=== PATIENT | female | born 1950 | race Caucasian/White ===

== ENCOUNTER 2017-04-17 19:20 | Emergency (ER) | payer SELFPAY ==
[~2017-04-17] VITALS: Ht 160 cm; Wt 65.0 kg
[2017-04-17 19:22] VITALS: BP 143/65; PULSE 96; RESP 16; TEMP 99.2; O2SAT 97
[2017-04-17] MEDS ORDERED: VENTAER INH (20:50)
[2017-04-17] MEDS ORDERED: GUAI600T11 PO (20:50)
[2017-04-17] MEDS ORDERED: LEVO125T4 PO (20:50)
[2017-04-17] MEDS ORDERED: POTA10CA PO (20:50)
[2017-04-17] MEDS ORDERED: FURO40TA PO (20:50)
[2017-04-17] MEDS ORDERED: PRED20 PO (22:13)
[2017-04-17] MEDS ORDERED: ZANT300T PO (22:13)
[2017-04-17] MEDS ORDERED: ZYRTEC PO (22:13)
--- NOTE | 2017-04-17 22:14 | PD ---
HPI Chief Complaint: Skin Problem Time Seen by Provider: 21:59 Travel History International Travel<30 days: No Contact w/Intl Traveler<30days: No Traveled to known affect area: No History of Present Illness HPI 66 years old female complains itching rash. Patient states that she started having itching rash on the feet 3 days ago. Patient states that she is not having itching of the trunk and upper extremity subsequently. Patient took Benadryl for the past several days. Last dose of Benadryl was this morning. Patient states that she was having trouble swallowing last night. Patient denies any headache. Patient denies any chest pain or shortness of breath. Patient states that she has some chest discomfort this evening. Patient denies any fever chills from the patient denies any coughing congestion. Patient is not sure of exposure. PFSH Past Medical History Asthma: Yes Cancer: Yes (breast) COPD: Yes Immunizations Current: Yes Tetanus Vaccination: < 5 Years Influenza Vaccination: Yes Social History Alcohol Use: No Tobacco Use: Yes Substance Use: No Allergies-Medications (Allergen,Severity, Reaction): Coded Allergies: ciprofloxacin (Verified Allergy, Severe, Anaphylaxis, 04/17/17) hydromorphone (Verified Allergy, Severe, Anaphylaxis, 04/17/17) Reported Meds & Prescriptions Reported Meds & Active Scripts Active Reported Potassium Chloride ER (Potassium Chloride) 10 Meq Cap 10 Meq PO DAILY Levothyroxine (Levothyroxine Sodium) 125 Mcg Tab 125 Mcg PO DAILY Mucus Relief ER (Guaifenesin) 600 Mg Tab 200 Mg PO BID PRN Ventolin Hfa 18 GM Inh (Albuterol Sulfate) 90 Mcg/Act Aer 2 Puff INH Q4H PRN Furosemide 40 Mg Tab 40 Mg PO DAILY Review of Systems General / Constitutional: No: Fever Eyes: No: Visual changes HENT: No: Headaches Cardiovascular: No: Chest Pain or Discomfort Respiratory: No: Shortness of Breath Gastrointestinal: No: Abdominal Pain Genitourinary: No: Dysuria Musculoskeletal: No: Pain Skin: Positive Rash, Positive Itching Neurologic: No: Weakness Psychiatric: No: Depression Endocrine: No: Polydipsia Hematologic/Lymphatic: No: Easy Bruising Physical Exam Narrative GENERAL: Well-nourished, well-developed patient. SKIN: Focused skin assessment warm/dry. Patient has hives over the face, trunk , extremity. HEAD: Normocephalic. EYES: No scleral icterus. No injection or drainage. Throat: No edema. NECK: Supple, trachea midline. No JVD or lymphadenopathy. CARDIOVASCULAR: Regular rate and rhythm without murmurs, gallops, or rubs. RESPIRATORY: Breath sounds equal bilaterally. No accessory muscle use. No stridor or wheezes. GASTROINTESTINAL: Abdomen soft, non-tender, nondistended. MUSCULOSKELETAL: No cyanosis, or edema. BACK: Nontender without obvious deformity. No CVA tenderness. Neurologic exam normal. Data Data Last Documented VS Vital Signs Date Time Temp Pulse Resp B/P (MAP) Pulse Ox O2 Delivery O2 Flow Rate FiO2 04/17/17 19:22 99.2 96 16 143/65 (91) 97 Orders Orders Dexamethasone Inj (Decadron Inj) (04/17/17 22:15) Diphenhydramine Inj (Benadryl Inj) (04/17/17 22:15) Pantoprazole (Protonix) (04/17/17 22:15) [facility] [place] Medical Decision Making Medical Screen Exam Complete: Yes Emergency Medical Condition: Yes Differential Diagnosis Differential diagnosis including allergic reaction, contact dermatitis. Narrative Course 66-year-old female with itching rash for the past 4 days. Benadryl 25 mg IM. Decadron 8 mg IM. Protonix 20 mg p.o. Diagnosis Primary Impression: Allergic reaction Qualified Codes: T78.40XA - Allergy, unspecified, initial encounter Patient Instructions: General Instructions Additional Instructions: Take medications as directed. Follow-up with personal physician. Return immediately if unable to swallow, shortness of breath. Med/Other Pt SpecificInfo: Prescription(s) given Scripts Ranitidine (Zantac) 300 Mg Tab 300 MG PO DAILY, #10 TAB 0 Refills Prov: Bowen Werner MD 04/17/17 Prednisone (Prednisone) 20 Mg Tab 20 MG PO BID, #10 TAB 0 Refills Prov: Bowen Werner MD 04/17/17 [[facility]] No Conflict Check 10 MG PO DAILY, #10 Prov: Bowen Werner MD 04/17/17 Disposition: 01 DISCHARGE HOME Condition: Stable Bowen Werner MD Apr 17, 2017 22:14
[2017-04-17] MEDS ORDERED: PANTOPRAZOLE SOD 20 MG DELAYED RELEASE TAB PO ONE (22:15)
[2017-04-17] MEDS ORDERED: DEXAMETHASONE SOD PHOS 4 MG/ML VIAL IM ONE (22:15)
[2017-04-17] MEDS ORDERED: diphenhydrAMINE HCL 50 MG/ML VIAL IM ONE (22:15)
== END 2017-04-17 23:16 | disposition home or self-care (01) ==
LOC: NEPD 19:20
DX: T78.40XA Allergy, unspecified, initial encounter (principal); R21 Rash and other nonspecific skin eruption; L29.9 Pruritus, unspecified; R13.10 Dysphagia, unspecified; R07.89 Other chest pain; J44.9 Chronic obstructive pulmonary disease, unspecified; Z85.3 Personal history of malignant neoplasm of breast; Z72.0 Tobacco use
CPT/HCPCS: 96372; 99283; J1100; J1200